=== PATIENT | female | born 1950 | race Caucasian/White ===

== ENCOUNTER → 2016-08-29 | Outpatient (CLI) | payer MEDICARE ==
--- NOTE | 2016-08-29 09:11 | Diagnostic Imaging Report ---
PROCEDURE: CT left lower extremity without contrast. TECHNIQUE: Multiple contiguous axial images were obtained through the left foot without the use of intravenous contrast. Sagittal and coronal reformations were then performed. INDICATION: Midfoot arthrosis. AVAILABLE COMPARISONS: None The visualized ankle is negative. The anterior, middle and posterior subtalar joints are unremarkable. A moderate-sized enthesophyte is present at the attachment of the plantar fascia to the calcaneus. The navicular bone contains a 10 x 11 x 8 mm lucency with surrounding sclerosis compatible with a cyst. Just medial to that region, smaller subcortical cysts are present adjacent to the navicular first cuneiform joint. At the lateral aspect of the first cuneiform, subchondral cysts are present. At the second tarsometatarsal joint, small bone fragments are present at the dorsal aspect of the second cuneiform. Subchondral subarticular cysts are seen at the base of the second metatarsal. The second metatarsophalangeal joint shows loss of width with cortical irregularities of the articular surface of the base of the second metatarsal and the articular surface of the second cuneiform. Subcortical cysts are present at the base of the third metatarsal and the third cuneiform with narrowing of that joint space and mild remodeling of the base of the third metatarsal at the joint. Bone fragments are visible dorsal to that joint also. Fourth and fifth tarsometatarsal joint spaces show some narrowing. There is degenerative change at the first metatarsophalangeal joint with mild valgus deformity. Osteophytes of the first metatarsal head are present. Degenerative change at the plantar aspect of the first metatarsal head is present beneath the sesamoids. There is no periarticular calcification or erosion. There is no chondrocalcinosis. IMPRESSION: 1. Arthropathy, greatest involving the second and third tarsometatarsal joints as described. Dictated by: Dictated on workstation # [id number]
== END ==
LOC: RAD 08:17
PROVIDERS: ATTEND Orthopaedic Surgery Foot and Ankle Surgery
DX: M19.072 Primary osteoarthritis, left ankle and foot (principal)
CPT/HCPCS: 73700